=== PATIENT | female | born 1985 | race Caucasian/White ===

== ENCOUNTER → 2021-04-05 | Outpatient (CLI) | payer OTHER ==
[~2021-04-05] MED LIST: BCP; BCP'S; CEPH500 PO; ISOT10; MULVITMIND PO; RXTRAM50 PO; [UNRECOGNIZED DRUG - CODE] PO
== END | disposition home or self-care (01) ==
LOC: LAB SHORT 14:23
DX: J02.9 Acute pharyngitis, unspecified (principal)
CPT/HCPCS: 87081

== ENCOUNTER 2021-06-17 16:48 | Emergency (ER) | payer BC ==
[~2021-06-17] VITALS: Ht 162.6 cm; Wt 56.7 kg
[2021-06-17] MEDS ORDERED: FAMO20 PO (18:43)
[2021-06-17] MEDS ORDERED: Prednisone50 MG PO (18:43)
[2021-06-17] MEDS ORDERED: EPIPEN 2-P0.3 MG/0.1 INJ (18:44)
== END 2021-06-17 19:06 | disposition home or self-care (01) ==
LOC: ER 16:48
DX: T78.40XA Allergy, unspecified, initial encounter (principal); Z88.0 Allergy status to penicillin
CPT/HCPCS: 36415; 96374; 99283-25; A9270; J2930

== ENCOUNTER 2024-07-30 17:39 | Emergency (ER) | payer OTHER ==
[~2024-07-30] VITALS: Ht 162.6 cm; Wt 59.0 kg
[~2024-07-30 17:39] MED LIST changes: +EPIPEN 2-P0.3 MG/0.1 INJ; +FAMO20 PO; +Prednisone50 MG PO
[2024-07-30] MEDS ORDERED: EpiNEPhrine 1 MG/1 ML 1ML Vial IM ONE (17:45)
[2024-07-30] MEDS ORDERED: DiphenhydrAMINE HCl 50 MG/ML 1ML Vial IV ONE ×2 (17:45→18:00)
[2024-07-30] MEDS ORDERED: MethylPREDNISolone Sod Succ 125 MG Vial IV ONE (17:45)
[2024-07-30] MEDS ORDERED: Famotidine 10 MG/ML 2ML Vial IV ONE (17:45)
[2024-07-30 18:30] VITALS: BP 105/72
[2024-07-30] MEDS ORDERED: EPIPEN0.3 MG/0.3 IM (18:40)
== END 2024-07-30 18:46 | disposition home or self-care (01) ==
LOC: ER 17:39
DX: L29.9 Pruritus, unspecified (principal); R06.7 Sneezing; T78.40XA Allergy, unspecified, initial encounter; Z91.018 Allergy to other foods; Z79.899 Other long term (current) drug therapy
CPT/HCPCS: 96374; 99282-25; J0171; J1200; J2919

== ENCOUNTER → 2025-01-21 | Outpatient (CLI) | payer OTHER ==
[~2025-01-21] MED LIST changes: +EPIPEN0.3 MG/0.3 IM
[2025-01-21 12:28] LABS: BASOPHILS ABSOLUTE AUTO 0.03 K/mm3 (0.00-0.23); BASOPHILS PERCENT AUTO 0 % (0-2); EOSINOPHILS ABSOLUTE AUTO 0.12 K/mm3 (0.00-0.68); EOSINOPHILS PERCENT AUTO 2 % (0-6); Hematocrit 42.8 % (33.0-51.0); Hemoglobin 14.5 g/dL (11.5-16.0); IMMATURE GRAN ABSOLUTE AUTO 0.02 K/mm3 (0.00-0.10); IMMATURE GRAN PERCENT AUTO 0 % (0-1); LYMPHOCYTES ABSOLUTE AUTO 2.59 K/mm3 (0.84-5.20); LYMPHOCYTES PERCENT AUTO 33 % (21-46); MONOCYTES ABSOLUTE AUTO 0.38 K/mm3 (0.16-1.47); MONOCYTES PERCENT AUTO 5 % (4-13); Mean Corpuscular HGB Conc 33.9 g/dL (31.5-36.5); Mean Corpuscular Volume 95 fL (80-100); NEUTROPHILS ABSOLUTE AUTO 4.61 K/mm3 (1.96-9.15); NEUTROPHILS PERCENT AUTO 60 % (41-73); NRBC ABSOLUTE 0.00 K/mm3 (0.00-0.02); NRBC Auto 0.0 /100 WBC (0.0-0.2); Platelet Count 222 K/mm3 (150-400); RDW Coefficient Variation 12.7 % (11.7-14.2); RDW Standard Deviation 44.4 fL (35.1-46.3)
[2025-01-21 12:47] LABS: Alanine Aminotransfer (ALT/SGP 20.0 U/L (12-78); Albumin, Blood 4.1 g/dL (3.4-5.0); Albumin/Globulin Ratio 1.1 (0.8-1.8); Anion Gap 13.0 mmol/L (3-11); Aspartate Aminotrans (AST/SGOT 18.0 U/L (12-37); Bilirubin, Total 0.4 mg/dL (0.1-1.0); Blood Urea Nitrogen 14.0 mg/dL (8-24); CO2, Blood 26.0 mmol/L (21-32); Calcium, Blood 9.6 mg/dL (8.5-10.1); Chloride, Blood 104.0 mmol/L (98-108); Creatinine, Blood 0.78 mg/dL (0.40-1.00); Globulin, Blood 3.8 g/dL (2.2-4.0); Glucose, Blood 91.0 mg/dL (70-99); Potassium, Blood 4.1 mmol/L (3.5-5.5); Sodium, Blood 139.0 mmol/L (136-145); Thyroid Stimulating Hormone 1.626 uIU/mL (0.360-4.800); Total Protein, Blood 7.9 g/dL (6.4-8.2)
== END ==
LOC: LAB 12:24 → LAB SHORT 12:24
PROVIDERS: Physician Assistant
DX: R53.83 Other fatigue (principal)
CPT/HCPCS: 80053; 84443; 85025